=== PATIENT | male | born 1970 | race Caucasian/White ===

== ENCOUNTER 2016-12-29 23:34 | Emergency (ER) | payer SELFPAY ==
[2016-12-30] MEDS ORDERED: cefTRIAXone 1 GM, Lidocaine 1% 2.1 ML IM ONE ×2 (00:48)
--- NOTE | 2016-12-30 00:54 | EDM.PDOC ---
ED HPI GENERAL MEDICAL PROBLEM - General Chief Complaint: ENT Problem Stated Complaint: THROAT PROBLEMS [id number] Time Seen by Provider: 12/30/16 00:49 Source of Information: Reports: Patient History Limitations: Reports: No Limitations - History of Present Illness INITIAL COMMENTS - FREE TEXT/NARRATIVE: 5 days h/o progressive sore throat Throat Pain Score (Numeric/FACES): 6 - Related Data Allergies Allergy/AdvReac Type Severity Reaction Status Date / Time No Known Allergies Allergy Verified 12/29/16 23:40 Home Meds: Home Meds . [No Known Home Meds] 12/29/16 [History] Past Medical History Musculoskeletal History: Reports: Fracture - Past Surgical History Other Musculoskeletal Surgeries/Procedures:: leg surgey, facail reconstruction Social & Family History - Tobacco Use Smoking Status *Q: Current Every Day Smoker Years of Tobacco use: 30 Packs/Tins Daily: 2 Second Hand Smoke Exposure: Yes - Recreational Drug Use Recreational Drug Use: No ED ROS ENT - Review of Systems Review Of Systems: ROS reveals no pertinent complaints other than HPI. ED EXAM, ENT - Physical Exam Exam: See Below Exam Limited By: No Limitations General Appearance: Alert, WD/WN, Mild Distress, Other (sore throat) Ears: Hearing Grossly Normal Mouth/Throat: Tonsillar Erythema, Tonsillar Exudates, Tonsillar Swelling Head: Atraumatic Neck: Non-Tender, Full Range of Motion, Lymphadenopathy (L), Lymphadenopathy (R) Respiratory/Chest: No Respiratory Distress Cardiovascular: Regular Rate, Rhythm GI/Abdominal: Soft, Non-Tender Neurological: Alert, Oriented, Normal Cognition, Normal Gait, No Motor/Sensory Deficits Psychiatric: Normal Affect, Normal Mood Skin: Warm, Dry, Normal Color Lymphatic: Other (cervical) Course - Vital Signs Last Recorded V/S: Last Vital Signs Temp 36.4 C 12/29/16 23:37 Pulse 67 12/29/16 23:37 Resp 18 12/29/16 23:37 BP 159/94 H 12/29/16 23:37 Pulse Ox 100 12/29/16 23:37 - Orders/Labs/Meds Orders: Active Orders 24 hr Category Date Time Status CULTURE STREP A CONFIRMATION [RM] Stat Lab 12/29/16 23:45 Results STREP SCRN A RAPID W CULT CONF [RM] Stat Lab 12/29/16 23:45 Results Meds: Medications Discontinued Medications Generic Name Dose Route Start Last Admin Trade Name Amber PRN Reason Stop Dose Admin Ceftriaxone Sodium 1 gm/ 0 gm 12/30/16 00:48 12/30/16 01:02 Lidocaine HCl 2.1 ml IM 12/30/16 00:49 1 inj ONETIME ONE Administration - Re-Assessments/Exams Free Text/Narrative Re-Assessment/Exam: 12/30/16 00:51 results discussed with pt. Departure - Departure Time of Disposition: 01:15 Disposition: Home, Self-Care 01 Condition: Good Clinical Impression: Tonsillitis - Discharge Information Instructions: Tonsillitis, [id number] Referrals: PCP,None [Primary Care Provider] - Forms: ED Department Discharge Additional Instructions: 1) avoid solid foods and scratchy foods 2) take tylenol or motrin for fever 3) sleep and rest as much as possible 4) recheck if feels worse rx given; z-elisabet - My Orders Last 24 Hours: My Active Orders 12/29/16 23:45 CULTURE STREP A CONFIRMATION [RM] Stat STREP SCRN A RAPID W CULT CONF [RM] Stat - Assessment/Plan Last 24 Hours: My Active Orders 12/29/16 23:45 CULTURE STREP A CONFIRMATION [RM] Stat STREP SCRN A RAPID W CULT CONF [RM] Stat
== END 2016-12-30 01:17 | disposition home or self-care (01) ==
LOC: DL.ED 23:34
DX: J03.90 Acute tonsillitis, unspecified (principal); F17.210 Nicotine dependence, cigarettes, uncomplicated
CPT/HCPCS: 87081; 87430; 96372; 99283; J0696